=== PATIENT | male | born 1960 | race African-American/Black ===

== ENCOUNTER 2022-07-25 13:19 | Emergency (ER) | payer OTHER ==
[2022-07-25 13:38] VITALS: BP 125/92; PULSE 89; RESP 18; TEMP 98.9; BMI 32.8
[2022-07-25] MEDS ORDERED: LORATADINE 10 MG TABLET PO ONE (13:40)
[2022-07-25] MEDS ORDERED: hydrOXYzine PAMOATE 25 MG CAPSULE (FP) PO ONE ×2 (13:40→13:51)
[2022-07-25] MEDS ORDERED: LORATADINE 10 MG TABLET ONE (13:51)
[2022-07-25] MEDS ORDERED: SODIUM CHLORIDE 0.9% 1000 ML INFUS.BAG IV ONE (13:58)
[2022-07-25 14:24] LABS: HEMATOCRIT 41.1 % (35.4-49); HEMOGLOBIN 13.4 G/dL (11.7-16.9); MCH 28.5 pg (25.7-33.7); MCHC 32.7 g/dl (32.0-35.9); MEAN CELL VOLUME 87.3 fl (80-96); MEAN PLT VOLUME 8.9 fl (7.5-11.1); PLATELET COUNT 195.6 10^3/uL (134-434); RBC 4.71 10^6/uL (4.00-5.60); RDW 14.8 % (11.9-15.9); WHITE BLOOD COUNT 6.8 10^3/uL (4.0-10.8)
[2022-07-25 14:27] LABS: PLATELET ESTIMATE ADEQUATE
[2022-07-25 14:32] LABS: ALBUMIN 3.7 g/dl (3.4-5.0); BILIRUBIN,TOTAL 0.6 mg/dl (0.2-1); CALCIUM 8.6 mg/dl (8.5-10); CREATININE 1.2 mg/dl (0.55-1.3); POTASSIUM 3.7 mmol/L (3.5-5.1); TOT PROT 6.4 g/dl (6.4-8.2)
== END 2022-07-25 15:00 | disposition home or self-care (01) ==
LOC: FER 13:19
DX: T88.7XXA Unspecified adverse effect of drug or medicament, initial encounter (principal); R51.9 Headache, unspecified; R07.0 Pain in throat; M79.10 Myalgia, unspecified site; L29.9 Pruritus, unspecified
CPT/HCPCS: 36415; 80053; 81003; 81015; 85025; 99283-25